=== PATIENT | male | born 1990 | race Caucasian/White ===

== ENCOUNTER 2017-03-17 10:49 | Emergency (ER) | payer BC ==
[~2017-03-17] VITALS: Ht 193 cm; Wt 147.0 kg
[~2017-03-17 10:49] MED LIST: AMOXICILLIN875 MG OR; NO HOME MEDS
[2017-03-17] MEDS ORDERED: PREDNISOLO15 MG/5 M1 PO (11:27)
[2017-03-17] MEDS ORDERED: BENADRYL A12.5 MG/1 PO (11:27)
[2017-03-17] MEDS ORDERED: AMOXIL400 MG/52 PO (11:27)
[2017-03-17 12:40] LABS: HEMATOCRIT 41.9 % (39.0-50.0); HEMOGLOBIN 14.3 g/dl (14.0-18.0); IMMATURE GRANULOCYTES 0.5 % (0.0-1.0); MEAN CELL VOLUME 91.5 fL CALC (80.0-100.0); MEAN CORPUSCULAR HGB 31.2 pG CALC (26.0-32.0); MEAN CORPUSCULAR HGB CONC 34.1 g/L CALC (32.0-36.0); NEUT# 7.45 thou/uL (1.82-7.42); RED BLOOD COUNT 4.58 mill/uL (4.70-6.10); RED CELL DISTRI WIDTH 12.2 % (11.5-15.5)
[2017-03-17 12:43] LABS: URINE BILIRUBIN - DIPSTICK NEGATIVE (NEGATIVE); URINE BLOOD DIPSTICK NEGATIVE (NEGATIVE); URINE CLARITY CLEAR; URINE COLOR YELLOW; URINE GLUCOSE - DIPSTICK NEGATIVE (NEGATIVE); URINE KETONE NEGATIVE (NEGATIVE); URINE LEUK ESTERASE NEGATIVE (Negative); URINE NITRITE - DIPSTICK NEGATIVE (Negative); URINE PH 5.5 (4.5-8.0); URINE PROTEIN - DIPSTICK NEGATIVE (NEG-TRACE); URINE UROBILINOGEN - DIPSTICK 0.2 E.U./dL (0.2)
[2017-03-17 12:54] LABS: ALBUMIN 4.3 g/dL (3.2-5.0); ALKALINE PHOSPHATASE 90 u/l (38-126); ANION GAP 14 (6-22 (CALC)); BILIRUBIN, TOTAL 0.3 mg/dL (0.0-1.4); BUN 13 mg/dL (9-20); BUN/CREATININE RATIO 13 (12-20 (CALC)); CALCIUM 9.3 mg/dL (8.4-10.2); CARBON DIOXIDE 27 mmol/l (22-30); CHLORIDE 103 mmol/l (95-108); GFR > 60 ML/MIN (>=60 (CALC)); GFR FOR AFR.AMER. > 60 ML/MIN (>=60 (CALC)); GLUCOSE 105 mg/dL (75-110); POTASSIUM 4.4 mmol/l (3.5-5.1); SGOT/AST 32 u/l (17-59); SGPT/ALT 56 u/l (21-72); SODIUM 140 mmol/l (137-146); TOTAL PROTEIN 7.8 g/dL (6.3-8.2)
[2017-03-17] MEDS ORDERED: MOTRIN800 MG PO (14:38)
[2017-03-17] MEDS ORDERED: FLEXERIL PO (14:38)
[2017-03-17] MEDS ORDERED: PERCOCET 5/325M1 TAB PO (14:38)
[2017-03-17] MEDS ORDERED: VALIUM5 MG PO (14:49)
[2017-03-17 14:55] VITALS: BP 130/79
[2017-03-17 15:17] LABS: COCAINE NEGATIVE (NEGATIVE); METHADONE NEGATIVE (NEGATIVE); TETRAHYDROCANNABIONOL NEGATIVE (NEGATIVE)
[2017-03-17 15:18] LABS: BARBITURATES NEGATIVE (NEGATIVE); OXCYCODONE NEGATIVE (NEGATIVE); TRICYLIC ANTIDEPRESSANTS NEGATIVE (NEGATIVE)
== END 2017-03-17 14:55 | disposition home or self-care (01) | DRG 563 ==
LOC: ED 10:49 → ED-I 14:05 → ED 14:55
PROVIDERS: Emergency Medicine; Internal Medicine
DX: S39.012A Strain of muscle, fascia and tendon of lower back, initial encounter (principal); F17.210 Nicotine dependence, cigarettes, uncomplicated; X50.9XXA Other and unspecified overexertion or strenuous movements or postures, initial encounter

== ENCOUNTER 2022-08-11 20:36 | Emergency (ER) | payer OTHER ==
[~2022-08-11] VITALS: Ht 193 cm; Wt 145.4 kg
[~2022-08-11 20:36] MED LIST changes: +AMOXIL400 MG/52 PO; +BENADRYL A12.5 MG/1 PO; +FLEXERIL PO; +MOTRIN800 MG PO; +PERCOCET 5/325M1 TAB PO; +PREDNISOLO15 MG/5 M1 PO; +VALIUM5 MG PO
[2022-08-11 20:55] VITALS: BP 125/78
[2022-08-11 21:01] VITALS: BP 128/77
[2022-08-11 22:08] VITALS: BP 128/77
== END 2022-08-11 22:12 | disposition home or self-care (01) | DRG 605 ==
LOC: ED 20:36
DX: S01.01XA Laceration without foreign body of scalp, initial encounter (principal); F17.200 Nicotine dependence, unspecified, uncomplicated; W22.09XA Striking against other stationary object, initial encounter; Y93.89 Activity, other specified; Y92.89 Other specified places as the place of occurrence of the external cause; Y99.0 Civilian activity done for income or pay

== ENCOUNTER 2023-02-09 19:20 | Emergency (ER) | payer BC ==
[~2023-02-09] VITALS: Ht 193 cm; Wt 150.0 kg
[2023-02-09 20:10] VITALS: BP 108/49
[2023-02-09] MEDS ORDERED: ULTRAM50 MG PO (21:17)
[2023-02-09] MEDS ORDERED: AMOXICILLIN500 MG PO (21:17)
[2023-02-09 21:33] VITALS: BP 110/70
== END 2023-02-09 21:36 | disposition home or self-care (01) | DRG 159 ==
LOC: ED 19:20
DX: K04.7 Periapical abscess without sinus (principal); F17.210 Nicotine dependence, cigarettes, uncomplicated; G47.30 Sleep apnea, unspecified

== ENCOUNTER 2023-07-18 19:14 | Emergency (ER) | payer BC ==
[~2023-07-18] VITALS: Ht 193 cm; Wt 151.0 kg
[~2023-07-18 19:14] MED LIST changes: +AMOXICILLIN500 MG PO; +ULTRAM50 MG PO
[2023-07-18 19:33] VITALS: BP 150/97
[2023-07-18 20:31] VITALS: BP 121/76
== END 2023-07-18 20:45 | disposition home or self-care (01) | DRG 179 ==
LOC: ED 19:14
DX: U07.1 COVID-19 (principal); R09.81 Nasal congestion; R51.9 Headache, unspecified; R05.9 Cough, unspecified; F17.200 Nicotine dependence, unspecified, uncomplicated